=== PATIENT | female | born 1940 | race African-American/Black ===

== ENCOUNTER 2019-12-16 15:34 | Inpatient (IN) | payer BC ==
[~2019-12-16] VITALS: Ht 154.9 cm; Wt 68.9 kg
[2019-12-16] MEDS ORDERED: SODIUM CHLORIDE 0.9% 1,000 ML IV ONE (17:10)
[2019-12-16] MEDS ORDERED: TETRACAINE 0.5% OPHTH DROPS 4ML BOTHEYE ONE (17:15)
[2019-12-16] MEDS ORDERED: FLUORESCEIN SODIUM 1MG/STRIP EACHEYE ONE (17:15)
[2019-12-16 17:45] LABS: BASOPHILS % 1.2 % (0.0-2.0); EOSINOPHILS % 2.6 % (0.0-5.0); HEMATOCRIT. 43.2 % (36.0-48.0); HEMOGLOBIN. 14.7 g/dL (12.0-16.0); LYMPHOCYTES % 31.3 % (20.0-50.0); MEAN CORPUSCULAR HEMOGLOBIN 30.5 pg (28.0-32.0); MEAN CORPUSCULAR VOLUME 89.3 fL (81.0-99.0); MEAN PLATELET VOLUME 8.1 fl (7.4-10.4); MONOCYTES % 10.3 % (2.0-8.0); NEUTROPHILS % 54.6 % (40.0-76.0); PLATELET 196 x1000/uL (130-400); RED BLOOD CELL COUNT 4.84 mill/uL (4.2-5.4); RED CELL DISTRIBUTION WIDTH 13.9 % (11.6-14.6)
[2019-12-16 17:51] LABS: CHLORIDE 101 mEq/L (98-107)
[2019-12-16 17:55] LABS: PARTIAL THROMBOPLASTIN TIME 27.8 sec (23.4-31.0); PROTHROMBIN TIME 10.4 sec (9.6-11.0)
[2019-12-16] MEDS ORDERED: ASPIRIN 325MG EC TABLET PO ONE (18:30)
[2019-12-16] MEDS ORDERED: POTASSIUM CHLORIDE 20MEQ TABLET SR PO ONE (20:15)
[2019-12-17] VITALS: BP 130/64
[2019-12-17] MEDS ORDERED: BENA10TA74 MT (02:13)
[2019-12-17] MEDS ORDERED: BENA1TAB21 PO (03:07)
[2019-12-17] MEDS ORDERED: LATA2.5D2 OP (03:07)
[2019-12-17 04:00] VITALS: BP 125/67
[2019-12-17 08:00] VITALS: BP 130/74
[2019-12-17] MEDS: BENAZEPRIL 10MG TABLET PO SCH (09:32)
[2019-12-17] MEDS: ASPIRIN 81MG EC TABLET PO SCH (09:32)
[2019-12-17] MEDS: HYDROCHLOROTHIAZIDE 12.5MG CAPSULE PO SCH (09:32)
[2019-12-17 12:00] VITALS: BP 130/80
[2019-12-17 16:00] VITALS: BP 132/102
[2019-12-17] MEDS: HYDROCODONE/ACETAMINOPHEN 5/325MG TABLET PO PRN (16:37)
[2019-12-17 18:20] LABS: CHLORIDE 103 mEq/L (98-107)
[2019-12-17] MEDS ORDERED: LATANOPROST 0.005% OPHTH DROPS 2.5ML BOTHEYE SCH (21:00)
[2019-12-17] MEDS: METHAZOLAMIDE 50MG TABLET PO SCH ×2 (21:00→21:13)
[2019-12-18] VITALS: BP 118/72
[2019-12-18 04:00] VITALS: BP 113/65
[2019-12-18 05:00] LABS: BASOPHILS % 1.2 % (0.0-2.0); EOSINOPHILS % 3.8 % (0.0-5.0); HEMATOCRIT. 39.5 % (36.0-48.0); HEMOGLOBIN. 13.6 g/dL (12.0-16.0); MEAN CORPUSCULAR HEMOGLOBIN 30.9 pg (28.0-32.0); MEAN CORPUSCULAR VOLUME 89.9 fL (81.0-99.0); MEAN PLATELET VOLUME 8.3 fl (7.4-10.4); MONOCYTES % 11.7 % (2.0-8.0); NEUTROPHILS % 42.3 % (40.0-76.0); PLATELET 180 x1000/uL (130-400); RED BLOOD CELL COUNT 4.39 mill/uL (4.2-5.4); RED CELL DISTRIBUTION WIDTH 13.6 % (11.6-14.6)
[2019-12-18 05:45] LABS: CHLORIDE 103 mEq/L (98-107)
[2019-12-18 08:00] VITALS: BP 123/75
[2019-12-18] MEDS: HYDROCHLOROTHIAZIDE 12.5MG CAPSULE PO SCH (08:58)
[2019-12-18] MEDS: ASPIRIN 81MG EC TABLET PO SCH (08:59)
[2019-12-18] MEDS: BENAZEPRIL 10MG TABLET PO SCH (08:59)
[2019-12-18] MEDS: HYDROCODONE/ACETAMINOPHEN 5/325MG TABLET PO PRN (08:59)
[2019-12-18 12:00] VITALS: BP 124/79
[2019-12-18 15:14] VITALS: BP 124/79
== END 2019-12-18 15:53 | disposition home or self-care (01) | DRG 123 ==
LOC: ER 15:34 → 7WST 20:10 → ENRESERV 21:00
PROVIDERS: ADMIT Internal Medicine; ATTEND Internal Medicine
DX: H49.20 Sixth [abducent] nerve palsy, unspecified eye (principal); E87.6 Hypokalemia; I10 Essential (primary) hypertension; K76.0 Fatty (change of) liver, not elsewhere classified; K80.20 Calculus of gallbladder without cholecystitis without obstruction; H53.2 Diplopia; F32.9 Major depressive disorder, single episode, unspecified; F41.9 Anxiety disorder, unspecified; Z79.899 Other long term (current) drug therapy
CPT/HCPCS: 36415; 70551; 71045; 71250; 80048; 80053; 83880; 84484; 85025; 93005; 97162; 99285; J7030